=== PATIENT | male | born 1980 | race Caucasian/White ===

== ENCOUNTER 2021-09-02 05:14 | Emergency (ER) | payer OTHER ==
[~2021-09-02] VITALS: Ht 190.5 cm; Wt 100.0 kg
--- NOTE | 2021-09-02 05:54 | PHYS DOC ---
Past History Additional Past Medical Histor: adhd, ptsd, squamous cell carcinoma (TIM DONIS DO) Past Surgical History: Other Additional Past Surgical Histo: ca removed left upper chest, left knee (TIM DONIS DO) General Adult EDM: Chief Complaint: MULTIPLE COMPLAINTS HPI: HPI: 41-year-old male presents with near syncopal episodes. Patient has been having episodes where he gets an intense ringing in his ears, blurry vision (occasionally with total vision loss), and near syncopal event. The patient states that when these events happen he feels like he is rocking back and forth and it appears to other people like he is falling asleep. He states that he is awake and does not feel like he is falling asleep. These episodes of been happening for the last week and a half. They become more frequent. He had an episode just prior to coming to the emergency room. The patient was diagnosed with squamous cell carcinoma in June of this year. He has not had his PET CT scan yet. The patient did have a syncopal episode for possible seizure a month and a half ago when he went into the bathroom at a hotel where he was staying. All he remembers is going into the bathroom and then waking up on the floor. Patient is on several medications but did not bring a list with him. He had a change in his blood pressure medication 1 month ago. He denies fever or chills. (TIM DONIS DO) Review of Systems: Review of Systems: Constitutional: Denies fever or chills Eyes: Denies change in visual acuity HENT: Ringing in ears Respiratory: Denies cough or shortness of breath Cardiovascular: Denies chest pain or edema GI: Denies abdominal pain, nausea, vomiting, bloody stools or diarrhea : Denies dysuria Musculoskeletal: Denies back pain or joint pain Integument: Denies rash Neurologic: Blurry vision, near syncope. Denies headache, focal weakness or sensory changes Endocrine: Denies polyuria or polydipsia Lymphatic: Denies swollen glands Psychiatric: Denies depression or anxiety (TIM DONIS DO) Current Medications: Current Meds: Current Medications Medications (Trade) Dose Ordered Sig/Coni Start Time Stop Time Status Last Admin Dose Admin Sodium Chloride 1,000 ml @ 1,000 mls/hr 1X ONCE 09/02/21 06:00 09/02/21 06:59 (TIM DONIS DO) Allergies: Allergies: Allergies Coded Allergies Type Severity Reaction Last Updated Verified No Known Drug Allergies 09/02/21 No (TIM DONIS DO) Physical Exam: PE: Constitutional: Well developed, well nourished, no acute distress, non-toxic appearance. [] HENT: Normocephalic, atraumatic, bilateral external ears normal, oropharynx moist, no oral exudates, nose normal. Bilateral tympanic membranes normal. [] Eyes: PERRLA, EOMI, conjunctiva normal, no discharge. [] Neck: Normal range of motion, no tenderness, supple, no stridor. [] Cardiovascular: Heart rate regular rhythm, no murmur [] Lungs & Thorax: Bilateral breath sounds clear to auscultation [] Abdomen: Bowel sounds normal, soft, no tenderness, no masses, no pulsatile masses. [] Skin: Warm, dry, no erythema, no rash. [] Back: No tenderness, no CVA tenderness. [] Extremities: No tenderness, no cyanosis, no clubbing, ROM intact, no edema. [] Neurologic: Alert and oriented X 3, normal motor function, normal sensory function, no focal deficits noted. [] Psychologic: Affect normal, judgement normal, mood normal. [] (TIM DONIS DO) Current Patient Data: Vital Signs: Vital Signs Date Time Temp Pulse Resp B/P (MAP) Pulse Ox O2 Delivery O2 Flow Rate FiO2 09/02/21 05:14 98.2 90 20 148/94 (112) 99 Room Air (TIM DONIS DO) EKG: EKG: [] (TIM DONIS DO) EKG: Sinus rhythm, rate 91, no acute ST elevation or depression, [place] 172, QRS 102, QTc 453, EP interpretation. Nonischemic tracing, intervals appropriate. (FUNMILAYO BENDER MD) Radiology/Procedures: Radiology/Procedures: [] (TIM DONIS DO) Heart Score: C/O Chest Pain: N/A Risk Factors: Risk Factors: DM, Current or recent (<one month) smoker, HTN, HLP, family history of CAD, obesity. Risk Scores: Score 0 - 3: 2.5% MACE over next 6 weeks - Discharge Home Score 4 - 6: 20.3% MACE over next 6 weeks - Admit for Clinical Observation Score 7 - 10: 72.7% MACE over next 6 weeks - Early Invasive Strategies (TIM DONIS DO) Course & Med Decision Making: Course & Med Decision Making Pertinent Labs and Imaging studies reviewed. (See chart for details) The patient's work-up is pending at this time. I am signing the patient out to the dayshift at 0600. [] (TIM DONIS DO) Course & Med Decision Making 0600: Dr. Bender assuming care. 0715: Patient resting comfortably in no acute distress on serial reassessments. Vital signs are appropriate. In brief, this is a 41-year-old male with a history of hypertension as well as a squamous cell skin cancer which was recently removed from his left upper chest wall and for which he follows at [facility]. He is planned for an MRI brain and PET/CT scans to ensure no spread of malignancy in the near future. Mr. Wells presents for evaluation of 2 weeks of transient episodes during which there will be a ringing in both ears and he will "sway back and forth a little" or " slump down a little" and be less responsive for a period of a few seconds. These episodes resolve on their own with no confusion afterwards/postictal state. They entail no loss of bowel or bladder control and patient feels back to normal after they occur. They have been increasing somewhat in frequency over the past couple of weeks; patient has had a couple of the episodes a day over the past few days. Last episode was prior to arrival when he was in bed. There is no relation to exertion or to change in body position; episodes happen most often when the patient is sitting down. Mr. Wells denies any associated fevers, nausea or vomiting, headache, focal or lateralizing weakness, numbness or tingling, neck stiffness/pain/meningismus, vision changes, shortness of breath or chest pain either prior to during or after the episodes in question, abdominal pain of any kind, flank pain, midline back pain, dysuria, hematuria, polyuria or oliguria, changes in bowel habits, pain or swelling to arms or legs. Patient has a completely nonfocal neurologic exam for me and an otherwise unremarkable physical examination aside from a tiny healing erythematous area to his right upper arm distally; states this was a localized skin infection for which she has been on amoxicillin and which has gotten much, much better. There is also a well-healed incision site to the left upper chest wall where the patient's skin cancer was removed. Labs, EKG and head CT are without any evidence of acute process. No evidence of emergency condition is identified. Patient is counseled that he will benefit from very close follow-up with primary care, from MRI brain and PET/CT scans which are planned for the near future, and from referrals to neurology and to cardiology for the episodes of concern. Patient is counseled not to drive or to swim unaccompanied until he is cleared by the neurologist in view of the fact that symptoms can occur during the daytime and might interfere with driving. He understands that if he feels worse instead of better, has progression of symptoms or develops other new symptoms of concern that he should return to the emergency department right away for reevaluation. All questions are answered. (FUNMILAYO BENDER MD) Dragon Disclaimer: Dragon Disclaimer: This electronic medical record was generated, in whole or in part, using a voice recognition dictation system. (TIM DONIS DO) Departure Departure: Impression: Primary Impression: Encounter for medical screening examination Disposition: HOME / SELF CARE / HOMELESS Condition: STABLE Referrals: CARIE OBREGON (PCP) Patient Instructions: Medical Screening Exam Additional Instructions: Follow-up very closely with your primary care doctor in the office in the next 1 to 2 days for a reevaluation of your symptoms and to discussion of next best steps in care. Please call the office this morning to make an appointment to be seen; let the clinic nurse know that you were seen in the emergency room overnight and need to be worked in for a close follow-up appointment. They will handle the rest. We are providing neurology clinic referral information as wel l; please call [phone] to make an appointment to be seen in the [facility] neurology clinic. Drink plenty of fluids and get plenty of rest. Return to the emergency department right away for worsening symptoms of any kind, progression of your symptoms or with any other new symptoms of concern. As we discussed, in view of the episodes you have been having, I recommend that you not drive, or swim unaccompanied, until you are cleared to resume those activities by your doctor. TIM DONIS DO Sep 02, 2021 05:54 FUNMILAYO BENDER MD Sep 02, 2021 07:34
[2021-09-02] MEDS ORDERED: IV NORMAL SALINE 1,000ML 1,000 ML IV ONE (06:00)
[2021-09-02 06:33] LABS: BASO % 1 % (0-3); EOS # 0.2 x10^3/uL (0.0-0.7); EOS % 3 % (0-3); HEMATOCRIT 52.9 % (39.0-53.0); HEMOGLOBIN 18.2 g/dL (13.0-17.5); LYMPH # 1.4 x10^3/uL (1.0-4.8); LYMPH % 22 % (24-48); MEAN CORPUSCULAR HEMOGLOBIN 31 pg (25-35); MEAN CORPUSCULAR HGB CONC 34 g/dL (31-37); MEAN CORPUSCULAR VOLUME 91 fL (79-100); MONO # 0.7 x10^3/uL (0.0-1.1); MONO % 12 % (0-9); NEUT # 3.9 x10^3uL (1.8-7.7); NEUT % 63 % (31-73); PLATELET COUNT 210 x10^3/uL (140-400); RED BLOOD COUNT 5.82 x10^6/uL (4.30-5.70); RED CELL DISTRIBUTION WIDTH 13.4 % (11.5-14.5); WHITE BLOOD COUNT 6.2 x10^3/uL (4.0-11.0)
--- NOTE | 2021-09-02 06:36 | RAD ---
CT HEAD/BRAIN WO History: Visual changes, dizziness, near syncope. Comparison: None. Technique: Noncontrast CT imaging was performed of the head. Findings: No intracranial hemorrhage. No mass effect. No hydrocephalus. No evidence of acute territorial infar ction. Imaged orbits are unremarkable. Imaged paranasal sinuses and mastoid air cells are clear. The scalp a nd calvarium are unremarkable. Impression: 1. No acute intracranial abnormality. ----- Exposure: One or more of the following individualized dose reduction techniques were utilized for thi s examination: 1. Automated exposure control 2. Adjustment of the mA and/or kV according to patient size 3. Use of iterative reconstruction technique. Electronically signed by: Petr Medeiros MD (09/02/2021 6:33 AM) [facility]
[2021-09-02 06:42] LABS: CALCIUM 8.8 mg/dL (8.5-10.1); CREATININE 1.1 mg/dL (0.7-1.3); GFR 73.1
[2021-09-02] MEDS ORDERED: ONDANSETRON PF 4 MG/2 ML VIAL. IVP ONE (06:45)
[2021-09-02] MEDS ORDERED: FAMOTIDINE 20 MG/2 ML VIAL IVP ONE (06:45)
[2021-09-02 06:48] LABS: ALBUMIN 3.6 g/dL (3.4-5.0); ALBUMIN/GLOBULIN RATIO 1.3 (1.0-1.7); TOTAL BILIRUBIN 0.4 mg/dL (0.2-1.0); TOTAL PROTEIN 6.4 g/dL (6.4-8.2)
[2021-09-02 07:21] VITALS: BP 149/88
--- NOTE | 2021-09-03 00:08 | EKG ---
[address] [address] Test Date: 2021-09-02 Test Time: 06:04:21 Pat Name: JOSE MOODY Department: Room: Gender: M Auction Assistant: : 1980 Requested By: TIM DONIS Order Number: [id number] Reading MD: Abdon Ralph MD Measurements Intervals [place] Rate: 91 P: 188 [place]: 172 QRS: 186 QRSD: 102 T: 154 QT: 362 QTc: 453 Interpretive Statements SINUS RHYTHM LIMB LEAD MISPLACEMENT Electronically Signed On 09-06-2021 7:18:07 CDT by Abdon Ralph MD
== END 2021-09-02 07:40 | disposition home or self-care (01) ==
LOC: ER 05:14
DX: Z00.00 Encounter for general adult medical examination without abnormal findings (principal); R55 Syncope and collapse; H93.13 Tinnitus, bilateral; H53.8 Other visual disturbances
CPT/HCPCS: 36415; 70450; 80053; 84484; 85025; 93005; 96360; 99285; J7030